=== PATIENT | male | born 2000 | race African-American/Black ===

== ENCOUNTER 2021-03-18 12:14 | Emergency (ER) | payer SELFPAY ==
[~2021-03-18] VITALS: Ht 175.3 cm; Wt 104.3 kg
[2021-03-18 12:41] VITALS: BP 147/67
--- NOTE | 2021-03-18 12:48 | NUR ---
Patient ambulated to bed 01 with steady/even gait.
--- NOTE | 2021-03-18 12:57 | NUR ---
Dr. Ramirez is evaluating patient at bed 04.
--- NOTE | 2021-03-18 13:05 | NUR ---
20 y/o M brought in by mother and self with c/c asthma exacerbation x 3 days. Patient presents A&Ox4, ambulatory and states wheezing for the past 3 days. Patient states "I was just going about my day" when it happened. Patient states recent 2 dose vaccination of Bioclones. Patient states using Albuterol inhaler prior to arrivl without relief. Pt placed onto blood pressure cuff, pulse ox. VSS. Respirations even/unlabored. Bed locked in lowest position, side rails x 1, call light in reach. PMH: Asthma Meds: Albuterol inhaler NKA Sx: Denies
[2021-03-18] MEDS ORDERED: TYLCODL PO (13:26)
[2021-03-18] MEDS ORDERED: ALBU0.0912 IH (13:26)
[2021-03-18] MEDS ORDERED: PRED20TA5 PO (13:28)
[2021-03-18 13:47] VITALS: BP 147/67
--- NOTE | 2021-03-18 13:48 | NUR ---
Patient discharged with v/s stable. Written and verbal after care instructions given and explained. Patient alert, oriented and verbalized understanding of instructions. Ambulatory with steady gait. All questions addressed prior to discharge. ID band removed. Patient advised to follow up with PMD. Rx of ALBUTEROL, PREDNISONE, AND ACETAMINOPHEN WITH CODEINE given. Patient educated on indication of medication including possible reaction and side effects. Opportunity to ask questions provided and answered.
== END 2021-03-18 13:48 | disposition home or self-care (01) ==
LOC: MED 12:14
DX: J20.9 Acute bronchitis, unspecified (principal); J45.909 Unspecified asthma, uncomplicated; Z79.51 Long term (current) use of inhaled steroids; Z79.899 Other long term (current) drug therapy; Z79.891 Long term (current) use of opiate analgesic
CPT/HCPCS: 99283